=== PATIENT | female | born 2000 | race American Indian/Alaskan Native ===

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

== ENCOUNTER 2021-04-18 07:34 | Emergency (ER) | payer MEDICAID ==
[2021-04-18 08:28] VITALS: BP 108/75
--- NOTE | 2021-04-18 09:01 | XRay Report ---
Right wrist-3 views INDICATION: injury PLAYING BASKETBALL X 1 DAY. COMPARISON: None. IMPRESSION: No acute osseous abnormality. Soft tissues are normal. Normal alignment. Signer Name: Brad Bell MD Signed: 04/18/2021 8:57 AM Workstation Name: [id number]
--- NOTE | 2021-04-18 10:12 | Emergency Department Report ---
Upper Extremity - HPI Chief Complaint: Extremity Injury, Upper Stated Complaint: RT WRIST INJURY Time Seen by Provider: 04/18/21 09:30 Upper Extremity: Right Wrist Occurred When: 1 Day Mechanism: Other (Struck wrist on basketball goal rim while playing basket ball yesterday. She felt a pop in wrist ) Symptoms: Yes Pain with Movement, Yes Limited Range of Movement, Yes Swelling, Yes Bruising/Ecchymosis, No Deformity, No Numbness, No Weakness, No Laceration or Abrasion ED Review of Systems ROS: Stated complaint: RT WRIST INJURY Other details as noted in HPI Comment: All other systems reviewed and negative Musculoskeletal: joint swelling, arthralgia ED Past Medical Hx - Past Medical History Previous Medical History?: No - Surgical History Past Surgical History?: No - Social History Smoking Status: Never Smoker Substance Use Type: None - Medications Home Medications: Home Medications Medication Instructions Recorded Confirmed Last Taken Type Clotrimazole 1% [Lotrimin] 1 applic TP BID #1 tube 11/22/17 Unknown Rx Ibuprofen [Motrin 600 MG tab] 600 mg PO Q8H PRN #30 tablet 04/18/21 Unknown Rx Upper Extremity Exam - Exam General: Vital signs noted. No distress. Alert and acting appropriately. Head and Torso: No HEENT Abnormality, No Chest/Lungs Abnormality Forearm: Yes Pain with Pronation, Yes Pain with Supination, No Forearm Tenderness, No Forearm Deformity Wrist: Yes Wrist Tenderness (mainly volar right wrist with very mild swelling and bruising ), No Normal ROM in Wrist (ROM mildly reduced to right wrist due to pain ), No Wrist Deformity, No Snuffbox Tenderness Hand: Yes Normal ROM in Digit(s), No Hand Tenderness, No Hand Deformity, No Digit Tenderness, No Digit(s) Deformity, No Tendon Dysfunction CMS Exam: Yes Normal Distal Pulses, Yes Normal Capillary Refill, Yes Normal Distal Sensation, No Broken Skin ED Course Vital Signs 04/18/21 08:27 Temperature 98.5 F Pulse Rate 65 Respiratory 16 Rate Blood Pressure 108/75 [Right] O2 Sat by Pulse 100 Oximetry ED Medical Decision Making - Radiology Data Radiology results: report reviewed Patient: KINGSLEY ALVAREZ MR#: [id number] 118 : 2000 Acct:[id number] Age/Sex: 20 / F ADM Date: 04/18/21 Loc: ED Attending Dr: Ordering Physician: ED DOC, MD Date of Service: 04/18/21 Procedure(s): XR wrist 3+V RT Accession Number(s): [id number] cc: ED MD CHRIS Fluoro Time In Minutes: Right wrist-3 views INDICATION: injury PLAYING BASKETBALL X 1 DAY. COMPARISON: None. IMPRESSION: No acute osseous abnormality. Soft tissues are normal. Normal alignment. Signer Name: Brad Bell MD Signed: 04/18/2021 8:57 AM Workstation Name: [id number] Transcribed By: LESLIE Dictated By: Brad Bell MD Electronically Authenticated By: Brad Bell MD Signed Date/Time: 04/18/21856 DD/ 6 TD/TT: Critical care attestation.: If time is entered above; I have spent that time in minutes in the direct care of this critically ill patient, excluding procedure time. ED Disposition Clinical Impression: Contusion of wrist, right, Sprain of wrist, right Disposition: - TO HOME OR SELFCARE Is pt being admited?: No Does the pt Need Aspirin: No Condition: Stable Instructions: Contusion, [id number], Wrist Sprain, Adult, RICE Therapy for Routine Care of Injuries Additional Instructions: I recommend that you take the motrin as prescribed. I commend that you wear the Velcro wrist splint as discussed. Also recommend applying ice to the area for the next couple days (follow RICE protocol on your d/c instructions). Follow-up with orthopedic listed on your discharge instruction especially if symptoms continues for another 1 to 2 weeks. Return to the ER if your symptoms returns in any way. Prescriptions: Ibuprofen [Motrin 600 MG tab] 600 mg PO Q8H PRN #30 tablet PRN Reason: Pain Referrals: GAIL CABAN MD [Staff Physician] - 7-10 days ([employer]) Forms: Work/School Release Form(ED) Time of Disposition: 10:46
== END 2021-04-18 11:42 | disposition home or self-care (01) ==
LOC: ED 07:34
DX: S63.501A Unspecified sprain of right wrist, initial encounter (principal); Z79.899 Other long term (current) drug therapy; X58.XXXA Exposure to other specified factors, initial encounter; Y93.67 Activity, basketball; Y92.89 Other specified places as the place of occurrence of the external cause; Y99.8 Other external cause status